=== PATIENT | male | born 1985 | race Caucasian/White ===

== ENCOUNTER 2023-06-16 01:35 | Emergency (ER) | payer SELFPAY ==
[~2023-06-16] VITALS: Ht 182.9 cm; Wt 103.0 kg
[2023-06-16 01:58] VITALS: TEMP 98.6; O2SAT 98
[2023-06-16 04:15] LABS: BASOPHILS % 1.8 % (0.0-2.0); EOSINOPHILS % 13.9 % (0.0-5.0); HEMATOCRIT. 43.9 % (42.0-52.0); HEMOGLOBIN. 14.9 g/dL (14.0-18.0); LYMPHOCYTES % 37.4 % (20.0-50.0); MEAN CORPUSCULAR HEMOGLOBIN 29.1 pg (28.0-32.0); MEAN CORPUSCULAR HGB CONC 34.1 g/dL (31.0-37.0); MEAN CORPUSCULAR VOLUME 85.4 fL (80.0-94.0); MEAN PLATELET VOLUME 8.6 fl (7.4-10.4); NEUTROPHILS % 40.9 % (40.0-76.0); PLATELET 251 x1000/uL (130-400); RED BLOOD CELL COUNT 5.14 mill/uL (4.7-6.1); RED CELL DISTRIBUTION WIDTH 12.6 % (11.6-14.6)
[2023-06-16 04:26] LABS: ALANINE AMINOTRANSFERASE 23 IU/L (10-49); ALBUMIN 4.6 g/dL (3.2-4.8); ASPARTATE AMINOTRANSFERASE 23 IU/L (<34); BILIRUBIN TOTAL 0.6 mg/dL (0.1-1.0); CALCIUM 8.6 mg/dL (8.7-10.4); CARBON DIOXIDE 24 mEq/L (21-32); CHLORIDE 107 mEq/L (98-107); CREATININE 0.9 mg/dL (0.6-1.3); GLUCOSE 104 mg/dL (70-105); POTASSIUM 3.6 mEq/L (3.5-5.1); PROTEIN TOTAL 7.4 g/dL (6.0-8.3); SODIUM 137 mEq/L (136-145); UREA NITROGEN BLOOD 20 mg/dL (9-23)
[2023-06-16 04:32] LABS: CLARITY URINE CLEAR (CLEAR); COLOR URINE YELLOW (YELLOW); GLUCOSE URINE NEGATIVE (NEGATIVE); KETONES URINE NEGATIVE (NEGATIVE); LEUKOCYTE ESTERASE URINE NEGATIVE (NEGATIVE); NITRITE URINE NEGATIVE (NEGATIVE); OCCULT BLOOD URINE NEGATIVE (NEGATIVE); PROTEIN URINE NEGATIVE (NEGATIVE); SPECIFIC GRAVITY URINE 1.038 (1.005-1.030)
[2023-06-16 04:34] LABS: INR 0.9; PROTHROMBIN TIME 10.4 sec (9.6-11.0)
[2023-06-16 04:44] VITALS: BP 115/77; PULSE 77; RESP 14
[2023-06-16] MEDS: SODIUM CHLORIDE 0.9% 1,000 ML IV ONE (04:44)
[2023-06-16] MEDS: KETOROLAC 15MG/ML VIAL IV ONE (04:44)
[2023-06-16] MEDS ORDERED: NAPR-679 MT (06:15)
== END 2023-06-16 06:32 | disposition home or self-care (01) ==
LOC: ER 01:35
DX: R10.9 Unspecified abdominal pain (principal)
CPT/HCPCS: 99285; 74176; 96374; 96361; 80053; 81003; 83690; 85025; 85610; 36415; J1885; J7030